=== PATIENT | male | born 1970 | race African-American/Black ===

== ENCOUNTER → 2016-12-09 | Emergency (ER) | payer BC ==
[~2016-12-09] VITALS: Ht 170.2 cm; Wt 86.2 kg
[~2016-12-09] MED LIST: BENADRYL25 M3 PO; EPIPEN 2-P0.3 MG/0.3 IM; PREDNISONE20 MG ORAL
[2016-12-09 22:17] VITALS: BP 153/101
[2016-12-09 22:18] VITALS: BP 153/101
--- NOTE | 2016-12-09 22:25 | Emergency Room Report ---
History of Present Illness General Chief Complaint: Allergic Reaction Source: Patient Present Illness HPI 46 YOM without known PMHx presents from [facility] with alleged allergic reaction since noon - 10 hours prior. Patient endorses eating food he ordered last night at noon, started feeling lump in right side of throat and tongue swelling. Denies difficulty swallowing, SOB, lips swelling, rash. Waited all day and then [place] to [place]. Was given PO solumedol, benadryl and IM epi with improvement in symptoms. Feels better now. Asymptomatic. No known food allergies. Allergies: Coded Allergies: PENICILLINS (Verified Allergy, Unknown, 12/09/16) Patient History Past Medical History: none Past Surgical History: none Pertinent Family History: none Social History: Denies: alcohol use, drug use, smoking Immunizations: UTD Reviewed Nursing Documentation: PMH: Agreed, PSxH: Agreed Nursing Documentation-PMH Past Medical History: No History, Except For Hx Hypertension: Yes Review of Systems All Other Systems: negative except mentioned in HPI Physical Exam Vital Signs Date Time Temp Pulse Resp B/P Pulse Ox O2 Delivery O2 Flow Rate FiO2 12/09/16 20:44 99.0 100 20 142/103 100 Room Air Sp02 EP Interpretation: reviewed, normal General Appearance: normal inspection, well appearing, no apparent distress, alert, GCS 15, non-toxic Head: normocephalic, atraumatic Eyes: bilateral eye EOMI, bilateral eye PERRL ENT: normal ENT inspection, hearing grossly normal, normal pharynx, no angioedema, normal voice, TMs + canals normal, uvula midline, moist mucus membranes Neck: normal inspection, full range of motion, supple, no bony tend Respiratory: normal inspection, chest non-tender, lungs clear, normal breath sounds, no rhonchi, no respiratory distress, no retraction, no accessory muscle use, no wheezing Cardiovascular #1: regular rate, rhythm, no edema Gastrointestinal: normal inspection, normal bowel sounds, non tender, soft, no guarding, no hernia Genitourinary: no CVA tenderness Musculoskeletal: normal inspection, back normal, normal range of motion, Dorinda' s Sign negative Neurologic: normal inspection, alert, oriented x3, responsive, picture framer III-XII nml as tested, motor strength/tone normal, speech normal Psychiatric: normal inspection, judgement/insight normal, mood/affect normal Skin: normal inspection, normal color, no rash, warm/dry, palpation normal Medical Decision Making Diagnostic Impression: Primary Impression: Allergic reaction Qualified Codes: T78.40XA - Allergy, unspecified, initial encounter ER Course Suspected allergic reaction. VSS. Afebrile. No rash or signs of anaphylaxis currently Observed in ED for period of time with no recurrent symptoms Rx Benadryl, Prednisone and Epi pen Advised [employer] followup for allergy testing DC home Last Vital Signs Date Time Temp Pulse Resp B/P Pulse Ox O2 Delivery O2 Flow Rate FiO2 12/09/16 22:18 99.0 100 20 153/101 100 Room Air Status: improved Disposition: HOME, SELF-CARE Condition: Improved Scripts Diphenhydramine HCl (Benadryl) 25 Mg Capsule 25 MG PO TID Y for rash for 7 Days, #30 CAP Prov: DEANNA TALAMANTES M.D. 12/09/16 Epinephrine (Epipen 2-Edenilson) 0.3 Mg/0.3 Ml Auto.injct 0.3 MG IM ONCE, #2 EA Prov: DEANNA TALAMANTES M.D. 12/09/16 Prednisone* (PREDNISONE*) 20 Mg Tablet 20 MG ORAL BID for 3 Days, #6 TAB Prov: DEANNA TALAMANTES M.D. 12/09/16 Patient Instructions: Anaphylactic Reaction, [id number] Additional Instructions: - Take prednisone for next 3 days starting tomorrow - If you have a recurrent rash, throat tightness, tongue/lips swelling, take benadryl and call 911 to come back to ER - If reaction is severe, inject epi pen to outer thigh and call 911 immediately DEANNA TALAMANTES M.D. Dec 09, 2016 22:25
== END | disposition home or self-care (01) ==
LOC: EDBD 20:50 → EMR 21:31
DX: T78.40XA Allergy, unspecified, initial encounter (principal); I10 Essential (primary) hypertension; Z88.0 Allergy status to penicillin; X58.XXXA Exposure to other specified factors, initial encounter; Y92.9 Unspecified place or not applicable; Y99.8 Other external cause status
CPT/HCPCS: 99284